=== PATIENT | female | born 1960 | race African-American/Black ===

== ENCOUNTER 2021-05-11 21:06 | Emergency (ER) | payer OTHER ==
[2021-05-11 21:17] VITALS: BP 169/83; PULSE 72; TEMP 97; BMI 34.4
[2021-05-11] MEDS ORDERED: KETOROLAC TROMETHAMINE 30 MG/1 ML VIAL IM ONE (21:43)
[2021-05-11] MEDS ORDERED: LIDOCAINE 5% TOPICAL PATCH TP ONE (21:44)
[2021-05-11] MEDS ORDERED: KETOROLAC TROMETHAMINE 30 MG/1 ML VIAL ONE (22:20)
[2021-05-11] MEDS ORDERED: LIDOCAINE 5% TOPICAL PATCH ONE (22:20)
== END 2021-05-11 23:22 | disposition home or self-care (01) ==
LOC: JERFT 21:06
PROC: 3E0233Z Introduction of Anti-inflammatory into Muscle, Percutaneous Approach (ICD-10-PCS; principal; 2021-05-11)
DX: M54.41 Lumbago with sciatica, right side (principal); S39.012A Strain of muscle, fascia and tendon of lower back, initial encounter
CPT/HCPCS: 72100-TC-FY; 99284-25